=== PATIENT | male | born 1980 | race Hispanic/Latino ===

== ENCOUNTER 2018-11-18 20:02 | Emergency (ER) | payer OTHER ==
[2018-11-18] MEDS ORDERED: NA CHLORIDE 0.9% 2,000 ML ONE (21:26)
[2018-11-18] MEDS ORDERED: ACETAMINOPHEN 500 MG TAB ONE (21:26)
[2018-11-18 21:43] LABS: Absolute Lymphocytes (CBC) 1.1 K/uL (0.7-4.9); Absolute Monocytes 0.7 K/uL (0.1-1.3); Absolute Neutrophil 9.9 K/uL (1.8-8.0); Basophils % 0.4 % (0-1.3); Hematocrit 46.4 % (39.6-49.0); Lymphocytes % 9.2 % (15.3-44.8); MPV 8.9 fL (7.6-11.3); Monocytes % 5.8 % (3.3-12.3); RBC Red Blood Cell Count 5.11 M/uL (4.33-5.43)
[2018-11-18 22:01] LABS: Potassium 3.4 mmol/L (3.5-5.1)
--- NOTE | 2018-11-18 22:17 | ER ---
Nurse's Notes [facility] Name: Artemio Pritchett Jr Age: 37 yrs Sex: Male : 1980 Arrival Date: 11/18/2018 Time: 20:03 Bed 12 Private MD: Diagnosis: Fever, unspecified;Viral infection, unspecified Presentation: 11/18 20:29 Presenting complaint: Patient states: Fever, bodyaches, sore throat, feeling weak since aj1 yesterday. Patient was seen at Urgent Care and was negative for flu and strep, urine was positive for ketones so they sent him to the ER. Transition of care: patient was not received from another setting of care. Onset of symptoms was November 18, 2018. Risk Assessment: Do you want to hurt yourself or someone else? Patient reports no desire to harm self or others. Initial Sepsis Screen: Does the patient meet any 2 criteria? HR > 90 bpm. No. Patient's initial sepsis screen is negative. Does the patient have a suspected source of infection? Yes: Other: fever, sore throat. Care prior to arrival: None. 20:29 Method Of Arrival: Ambulatory aj 20:29 Acuity: BRISEIDA 4 aj1 Triage Assessment: 20:30 General: Appears in no apparent distress. uncomfortable, ill, Behavior is cooperative, aj1 anxious, restless. Neuro: Level of Consciousness is awake, alert, obeys commands. Cardiovascular: Patient's skin is warm and dry. Respiratory: Airway is patent Respiratory effort is even, unlabored, Respiratory pattern is regular, symmetrical. Historical: - Allergies: 20:30 No Known Allergies; aj1 - Home Meds: 20:30 None [Active]; aj1 - PMHx: 20:30 None; aj1 - PSHx: 20:30 None; aj1 - Immunization history:: Flu vaccine is not up to date. - Social history:: Smoking status: Patient uses tobacco products, 2 cigarettes per day. - Ebola Screening: : Patient denies travel to an Ebola-affected area in the 21 days before illness onset. Screenin:45 Abuse screen: Denies threats or abuse. Denies injuries from another. Nutritional ed1 screening: No deficits noted. Tuberculosis screening: No symptoms or risk factors identified. Fall Risk None identified. Assessment: 20:45 General: Appears uncomfortable, Behavior is calm, cooperative. Pain: Complains of pain ed1 in generalized Pain currently is 8 out of 10 on a pain scale. Quality of pain is described as aching, Pain began 1 day ago. Is continuous. Neuro: Level of Consciousness is awake, alert, obeys commands, Oriented to person, place, time, situation. Cardiovascular: Denies chest pain, Heart tones S1 S2 present. Respiratory: Airway is patent Respiratory effort is even, unlabored, Respiratory pattern is regular, symmetrical, Breath sounds are clear bilaterally. GI: Abdomen is non-distended, Bowel sounds present X 4 quads. Abd is soft and non tender X 4 quads. Patient currently denies diarrhea, nausea, vomiting. : No signs and/or symptoms were reported regarding the genitourinary system. EENT: Oral mucosa is dry. Derm: Skin is intact, is healthy with good turgor, Skin is dry, Skin is normal, Skin temperature is hot. Musculoskeletal: Circulation, motion, and sensation intact. Range of motion: intact in all extremities. 21:45 Reassessment: Patient appears in no apparent distress at this time. No changes from ed1 previously documented assessment. Patient and/or family updated on plan of care and expected duration. Pain level reassessed. Patient is alert, oriented x 3, equal unlabored respirations, skin warm/dry/pink. Patient states symptoms have not improved. 22:43 Reassessment: Patient appears in no apparent distress at this time. Patient and/or ed1 family updated on plan of care and expected duration. Pain level reassessed. Patient is alert, oriented x 3, equal unlabored respirations, skin warm/dry/pink. Patient states feeling better. Patient states symptoms have improved. Vital Signs: 20:30 BP 111 / 74; Pulse 108; Resp 20; Temp 100.2; Pulse Ox 100% on R/A; Weight 89.36 kg (R); aj1 Pain 8/10; 21:45 BP 113 / 76; Pulse 89; Resp 19; Temp 100.1(O); Pulse Ox 100% on R/A; Pain 8/10; ed1 22:00 Temp 98.2(O); ed1 22:43 BP 121 / 76; Pulse 80; Resp 18; Temp 98.2(O); Pulse Ox 100% ; Pain 4/10; ed1 ED Course: 20:03 Patient arrived in ED. am2 20:30 Triage completed. aj1 20:30 Arm band placed on Patient placed in an exam room. aj1 20:32 Joey Acosta PA is PHCP. jr8 20:32 Srini Martinez MD is Attending Physician. jr8 20:43 Luisa Escalante, RN is Primary Nurse. ed1 20:45 Patient has correct armband on for positive identification. Bed in low position. Call ed1 light in reach. Adult w/ patient. Pulse ox on. NIBP on. 21:08 Initial lab(s) drawn, by me, sent to lab. Flu and/or RSV swab sent to lab. Inserted ed1 saline lock: 20 gauge in right antecubital area, using aseptic technique. Blood collected. 22:43 No provider procedures requiring assistance completed. IV discontinued, intact, ed1 bleeding controlled, No redness/swelling at site. Pressure dressing applied. Administered Medications: 21:24 Drug: NS 0.9% (20 ml/kg) 20 ml/kg Route: IV; Rate: 1 bolus; Site: right antecubital; ed1 22:34 Follow up: Response: No adverse reaction; Marked relief of symptoms; IV Status: fc Completed infusion; IV Intake: 2000ml 22:43 Follow up: IV Status: Completed infusion; IV Intake: 2000ml ed1 21:25 Drug: Tylenol 1000 mg Route: PO; ed1 22:00 Follow up: Temp 98.2 Oral; Response: No adverse reaction; Temperature is decreased ed1 Intake: 22:34 IV: 2000ml; Total: 2000ml. 22:43 IV: 2000ml; Total: 4000ml. ed1 Outcome: 22:17 Discharge ordered by . jr8 22:43 Discharged to home ambulatory, with significant other. ed1 22:43 Condition: good 22:43 Discharge instructions given to patient, Instructed on discharge instructions, follow up and referral plans. Demonstrated understanding of instructions, follow-up care. 22:44 Patient left the ED. ed1 Signatures: Felicia Jiménez RN RN aj1 Venessa Ferrera RN RN Luisa Escalante RN RN ed1 Joey Acosta PA PA jr8 [facility]
--- NOTE | 2018-11-18 22:18 | EDPHYS ---
Physician Documentation [facility] Name: Artemio Pritchett Jr Age: 37 yrs Sex: Male : 1980 Arrival Date: 11/18/2018 Time: 20:03 Bed 12 Private MD: ED Physician Srini Martinez HPI: 11/18 21:28 This 37 yrs old Male presents to ER via Ambulatory with complaints of Pain All jr8 Over, bodyache. 21:28 The patient reports fever, with an emergency department temperature of 100.2 degrees jr8 Fahrenheit. Onset: The symptoms/episode began/occurred acutely, yesterday. Modifying factors: there are no obvious modifying factors. Associated signs and symptoms: Pertinent positives: cough, sore throat. Severity of symptoms: At their worst the symptoms were moderate in the emergency department the symptoms are unchanged. The patient has not experienced similar symptoms in the past. The patient has been recently seen at an urgent care. Patient seen by urgent care before arriving in ED. Was flu swabbed and strep swabbed. Both were negative. Stated that he has had cough, sore throat, fevers, body aches, and myalgias. Stated that he came to ED because they could not find what was wrong and was worried that he was dehydrated . Historical: - Allergies: 20:30 No Known Allergies; aj1 - Home Meds: 20:30 None [Active]; aj1 - PMHx: 20:30 None; aj1 - PSHx: 20:30 None; aj1 - Immunization history:: Flu vaccine is not up to date. - Social history:: Smoking status: Patient uses tobacco products, 2 cigarettes per day. - Ebola Screening: : Patient denies travel to an Ebola-affected area in the 21 days before illness onset. ROS: 21:28 Eyes: Negative for injury, pain, redness, and discharge, Neck: Negative for injury, jr8 pain, and swelling, Cardiovascular: Negative for chest pain, palpitations, and edema, Abdomen/GI: Negative for abdominal pain, nausea, vomiting, diarrhea, and constipation, Back: Negative for injury and pain, MS/Extremity: Negative for injury and deformity, Skin: Negative for injury, rash, and discoloration, Neuro: Negative for headache, weakness, numbness, tingling, and seizure. 21:28 Constitutional: Positive for body aches, chills, fever, malaise. 21:28 ENT: Positive for sore throat, Negative for drainage from ear(s), ear pain, rhinorrhea, sinus congestion. 21:28 Respiratory: Positive for cough, Negative for dyspnea on exertion, shortness of breath, sputum production, wheezing. Exam: 21:28 Eyes: Pupils equal round and reactive to light, extra-ocular motions intact. Lids and jr8 lashes normal. Conjunctiva and sclera are non-icteric and not injected. Cornea within normal limits. Periorbital areas with no swelling, redness, or edema. ENT: Nares patent. No nasal discharge, no septal abnormalities noted. Tympanic membranes are normal and external auditory canals are clear. Oropharynx with no redness, swelling, or masses, exudates, or evidence of obstruction, uvula midline. Mucous membranes moist. Neck: Trachea midline, no thyromegaly or masses palpated, and no cervical lymphadenopathy. Supple, full range of motion without nuchal rigidity, or vertebral point tenderness. No Meningismus. Cardiovascular: Regular rate and rhythm with a normal S1 and S2. No gallops, murmurs, or rubs. Normal PMI, no JVD. No pulse deficits. Respiratory: Lungs have equal breath sounds bilaterally, clear to auscultation and percussion. No rales, rhonchi or wheezes noted. No increased work of breathing, no retractions or nasal flaring. Abdomen/GI: Soft, non-tender, with normal bowel sounds. No distension or tympany. No guarding or rebound. No evidence of tenderness throughout. Back: No spinal tenderness. No costovertebral tenderness. Full range of motion. Skin: Warm, dry with normal turgor. Normal color with no rashes, no lesions, and no evidence of cellulitis. MS/ Extremity: Pulses equal, no cyanosis. Neurovascular intact. Full, normal range of motion. Neuro: Awake and alert, GCS 15, oriented to person, place, time, and situation. Cranial nerves II-XII grossly intact. Motor strength 5/5 in all extremities. Sensory grossly intact. Cerebellar exam normal. Normal gait. Vital Signs: 20:30 BP 111 / 74; Pulse 108; Resp 20; Temp 100.2; Pulse Ox 100% on R/A; Weight 89.36 kg (R); aj1 Pain 8/10; 21:45 BP 113 / 76; Pulse 89; Resp 19; Temp 100.1(O); Pulse Ox 100% on R/A; Pain 8/10; ed1 22:00 Temp 98.2(O); ed1 22:43 BP 121 / 76; Pulse 80; Resp 18; Temp 98.2(O); Pulse Ox 100% ; Pain 4/10; ed1 MDM: 20:32 Patient medically screened. jr8 22:15 Data reviewed: vital signs, nurses notes, lab test result(s). Data interpreted: Pulse jr8 oximetry: on room air is 100 %. Interpretation: normal. Counseling: I had a detailed discussion with the patient and/or guardian regarding: the historical points, exam findings, and any diagnostic results supporting the discharge/admit diagnosis, lab results, the need for outpatient follow up, a family practitioner, to return to the emergency department if symptoms worsen or persist or if there are any questions or concerns that arise at home. Response to treatment: the patient's symptoms have markedly improved after treatment, patient is well hydrated. ED course: Patient feeling much better. Viral illness more then likely cause of fever. No infectious signs noted on physical exam. Recommend rest through weekend, hydrate, tylenol, ibuprofen for fevers, and to push fluids. If worse to return. Patient and pleased and good with plan. Would come back if worse . 11/18 20:38 Order name: CBC with Diff; Complete Time: 21:52 jr8 11/18 20:38 Order name: Basic Metabolic Panel; Complete Time: 22:04 8 11/18 20:38 Order name: Influenza Screen (a \T\ B); Complete Time: 22:07 jr8 11/18 20:38 Order name: CPK; Complete Time: 22:04 jr8 11/18 20:39 Order name: [place] Screen Profile; Complete Time: 22:00 jr8 Administered Medications: 21:24 Drug: NS 0.9% (20 ml/kg) 20 ml/kg Route: IV; Rate: 1 bolus; Site: right antecubital; ed1 22:34 Follow up: Response: No adverse reaction; Marked relief of symptoms; IV Status: fc Completed infusion; IV Intake: 2000ml 22:43 Follow up: IV Status: Completed infusion; IV Intake: 2000ml ed1 21:25 Drug: Tylenol 1000 mg Route: PO; ed1 22:00 Follow up: Temp 98.2 Oral; Response: No adverse reaction; Temperature is decreased ed1 Disposition: 11/19 01:46 Co-signature as Attending Physician, Srini Martinez MD. rn Disposition: 11/18/18 22:17 Discharged to Home. Impression: Fever, unspecified, Viral infection, unspecified. - Condition is Stable. - Discharge Instructions: Fever, Adult, Viral Respiratory Infection. - Work release form, Medication Reconciliation Form, Thank You Letter, Antibiotic Education, Prescription Opioid Use form. - Follow up: Private Physician; When: 5 - 6 days; Reason: Recheck today's complaints, Continuance of care, Re-evaluation by your physician. - Problem is new. - Symptoms have improved. Signatures: Dispatcher [employer] EDMS Felicia Jiménez, RN RN aj1 Srini Martinez MD MD rn Riggs, Erika, RN RN ed1 Joey Acosta PA PA jr8 Venessa Ferrera RN Corrections: (The following items were deleted from the chart) 11/18 22:44 22:17 11/18/2018 22:17 Discharged to Home. Impression: Fever, unspecified; Viral ed1 infection, unspecified. Condition is Stable. Forms are Medication Reconciliation Form, Thank You Letter, Antibiotic Education, Prescription Opioid Use. Follow up: Private Physician; When: 5 - 6 days; Reason: Recheck today's complaints, Continuance of care, Re-evaluation by your physician. Problem is new. Symptoms have improved. jr8
== END 2018-11-18 22:44 | disposition home or self-care (01) ==
LOC: ER 20:02
DX: B34.9 Viral infection, unspecified (principal); F17.210 Nicotine dependence, cigarettes, uncomplicated
CPT/HCPCS: 36415; 80048; 82550; 85025; 86308; 87804; 96360; 99284; J7030